=== PATIENT | male | born 1965 | race Caucasian/White ===

== ENCOUNTER → 2021-08-10 | Outpatient (CLI) | payer OTHER ==
[~2021-08-10] MED LIST: ALLO300 PO; ASPI81CH PO; CITRACAL + BON1 EACH PO; FISH1000 PO; GLUC500 PO; IBUP400 PO; IBUP600 PO; MULVITMIND PO; Percocet 5-3251 EACH PO
== END | disposition home or self-care (01) ==
LOC: LAB SHORT 18:46 → LAB 18:46
DX: R31.9 Hematuria, unspecified (principal)
CPT/HCPCS: 87077; 87086; 87186

== ENCOUNTER 2023-02-07 11:43 | Day surgery (SDC) | payer OTHER ==
[~2023-02-07] VITALS: Ht 180.3 cm; Wt 93.5 kg
[2023-02-07 15:45] VITALS: BP 121/95
== END 2023-02-07 15:15 | disposition home or self-care (01) ==
LOC: ORSCSDS 11:43
PROVIDERS: Internal Medicine Gastroenterology
PROC: 0DJD8ZZ Inspection of Lower Intestinal Tract, Via Natural or Artificial Opening Endoscopic (ICD-10-PCS; principal; 2023-02-07 13:00)
DX: Z12.11 Encounter for screening for malignant neoplasm of colon (principal); Z86.010 Personal history of colon polyps; K57.30 Diverticulosis of large intestine without perforation or abscess without bleeding; Z87.891 Personal history of nicotine dependence
CPT/HCPCS: J2704; J7120